=== PATIENT | male | born 1980 | race Caucasian/White ===

== ENCOUNTER 2016-10-22 14:20 | Emergency (ER) | payer OTHER ==
[2016-10-22 14:28] VITALS: RESP 16
[2016-10-22] MEDS ORDERED: IBUPROFEN 600 MG TAB PO ONE (15:01)
--- NOTE | 2016-10-22 15:51 | DX ---
Left Knee, 5 Views Clinical Indications: Left knee pain in a 36-year-old male following a skiing injury. Findings: An osseous fragment is seen adjacent to the lateral aspect of the proximal left tibia. This may represent a Segond fracture which can be associated with internal derangement. No other fracture is seen. A joint effusion is suspected. The bone alignment is normal. Impression: Avulsion fracture of the lateral aspect of the proximal left tibia could reflect a Segond fracture. If clinical findings suggest internal derangement, MRI could be considered for further greg luation.
[2016-10-22] MEDS ORDERED: OXYCODONE/APAP 5/325 TAB PO ONE (16:35)
--- NOTE | 2016-10-22 16:41 | DX ---
Left Tibia/Fibula (Lower Leg), Two Views Clinical Indications: Pain following trauma. Findings at the level of the left knee are described in a separate report. Findings: Again noted is a small avulsion fracture on the lateral aspect of the proximal tibia. No ot her fracture is seen. The ankle mortise is intact. Impression: Avulsion fracture on the lateral aspect of the proximal left tibia is detailed on a separ ate report for the left knee.
--- NOTE | 2016-10-22 16:43 | EDPHY ---
H & P Smoking Status: Never smoked Time Seen by Provider: 10/22/16 14:37 HPI/ROS: CHIEF COMPLAINT: left knee injury HISTORY OF PRESENT ILLNESS: 36-year-old male presents emergency department complaining of left knee pain after a fall while skiing today. [place], he twisted his left knee and fell. Patient reports immediate pain, unable to ambulate due to pain, patient was [place] the [place] on a toboggan. Patient denies previous injury to this left leg. He denies head strike, no neck pain. No ankle or hip pain. No numbness or tingling in this leg. He denies other complaints. REVIEW OF SYSTEMS: A comprehensive 10 point review of systems is otherwise negative aside from elements mentioned in the history of present illness. (Nayeli Jaeger) Physical Exam: GEN: Awake, alert, oriented, no acute distress RESP: nl resp effort MSK: Left knee with swelling, diffuse tenderness to palpation, limited range of motion due to pain, difficult exam due to tenderness, no medial or lateral joint line tenderness, no break in skin, no patellar tenderness, 2+ pedal pulses , sensation intact to light touch SKIN: No break in skin (Nayeli Jaeger) Constitutional: Initial Vital Signs Temperature (C) 36.6 C 10/22/16 14:25 Heart Rate 84 10/22/16 14:25 Respiratory Rate 16 10/22/16 14:25 Blood Pressure 131/92 H 10/22/16 14:25 O2 Sat (%) 97 10/22/16 14:25 O2 Delivery Mode Room Air Allergies/Adverse Reactions: hydrocodone Allergy (Verified 10/22/16 14:25) Home Medications: Medication Instructions Recorded Adderall 10 MG (*) 10/22/16 oxyCODONE/APAP 5/325 [Percocet 1 - 2 tab PO Q6H PRN #20 tab 10/22/16 5/325] MDM/Departure - MDM Diagnostics: Left knee x-ray independently reviewed by me- Impression: Avulsion fracture of the lateral aspect of the proximal left tibia could reflect a Segond fracture. If clinical findings suggest internal derangement, MRI could be considered for further evaluation. Dictated By: Samuel Olea MD (Nayeli Jaeger) Medications Given: Discontinued Medications Ibuprofen (Motrin) 600 mg PO EDNOW ONE Stop: 10/22/16 15:02 Last Admin: 10/22/16 15:13 Dose: 600 mg Oxycodone/Acetaminophen (Percocet 5/325) 1 tab PO EDNOW ONE Stop: 10/22/16 16:36 Last Admin: 10/22/16 16:51 Dose: 1 tab ED Course/Re-evaluation: I did not see this patient while he was in the emergency department. However his care was discussed with the nurse practitioner while the patient was in the department. I agree with treatment plan and management (Presley Lemon) - Depart Disposition: Home, Routine, Self-Care Clinical Impression: Sprain of anterior cruciate ligament of left knee Qualifiers: Encounter type: initial encounter Qualifier Code: (S83.512A) Sprain of anterior cruciate ligament of left knee, initial encounter Condition: Good Instructions: ACL Injury (ED) Additional Instructions: Rest, ice, elevate, take 600mg of ibuprofen every 8 hours with food for 3-5 days as needed for pain and swelling. Take Percocet for severe pain. Return to the emergency department for any numbness, tingling, discoloration of you limb or other concerns. Follow up with orthopedist at 1st available appointment , call Monday to schedule this. Do ankle pumps 10 times an hour each leg while awake. Take 81 mg of aspirin daily until you follow up with orthopedist. Prescriptions: oxyCODONE/APAP 5/325 [Percocet 5/325] 1 - 2 tab PO Q6H PRN #20 tab PRN Reason: Pain, Severe Referrals: Andre Hemphill MD [Medical Doctor] - As per Instructions (orthopedist res habilitation assistant)
[2016-10-22 17:01] VITALS: BP 128/88; PULSE 80; O2SAT 98
[2016-10-22 17:04] VITALS: TEMP 97.5
== END 2016-10-22 17:04 | disposition home or self-care (01) ==
DX: S83.512A Sprain of anterior cruciate ligament of left knee, initial encounter (principal); V00.321A Fall from snow-skis, initial encounter; Y92.89 Other specified places as the place of occurrence of the external cause; Y99.8 Other external cause status; Y93.23 Activity, snow (alpine) (downhill) skiing, snowboarding, sledding, tobogganing and snow tubing
CPT/HCPCS: L1830